=== PATIENT | male | born 1965 | race Caucasian/White ===

== ENCOUNTER 2017-02-19 10:33 | Emergency (ER) | payer OTHER, BC ==
[~2017-02-19] VITALS: Ht 177.8 cm; Wt 83.0 kg
[2017-02-19 11:27] LABS: BASOPHIL COUNT 0.1 K/uL (0-0.1); EOSINOPHIL (%) 0.7 % (0-5); EOSINOPHIL COUNT 0.1 K/uL (0-0.3); HEMATOCRIT 41.7 % (38.0-50.0); IMMATURE GRANULOCYTE (%) 1.9 % (0.0-0.7); IMMATURE GRANULOCYTE COUNT 0.3 K/uL; LYMPHOCYTE COUNT 1.8 K/uL (1.0-2.8); MCH 31.2 PG (29.0-34.0); MCHC 35.5 G/DL (30.0-36.0); MEAN PLAT.VOLUME 10.1 uM^3 (9.0-12.4); MONOCYTE (%) 4.8 % (3-12); MONOCYTE COUNT 0.7 K/uL (0-0.8); NEUTROPHIL (%) 80.1 % (45-76); PLATELET COUNT 302 K/uL (156-360); RBC DIS.WIDTH-CV 12.3 % (11.8-14.6); RBC DIS.WIDTH-SD 39.9 % (39-53); RED BLOOD COUNT 4.74 M/uL (4.00-5.50); WHITE BLOOD COUNT 14.9 K/uL (4.1-10.2)
[2017-02-19 11:37] LABS: CHLORIDE 108 mEq/L (99-109); POTASSIUM 4.3 mEq/L (3.7-5.4); SODIUM 138 mEq/L (136-147)
[2017-02-19 11:39] LABS: GLUCOSE 102 mg/dL (70-99)
[2017-02-19 11:40] LABS: ANION GAP 10 MEQ/L (2-14)
[2017-02-19 11:43] LABS: GFR ESTIMATE (CALCULATED) 52 mL/min/
[2017-02-19 11:44] LABS: UREA NITROGEN (BUN) 22 mg/dL (9-23)
[2017-02-19 12:00] LABS: ADD MIUA? NO; BILIRUBIN NEGATIVE; BLOOD NEGATIVE; COLOR YELLOW ((YELLOW)); GLUCOSE (STRIP) NEGATIVE; KETONES NEGATIVE; LEUKOCYTES NEGATIVE; NITRITE NEGATIVE; PROTEIN (STRIP) NEGATIVE; SPECIFIC GRAVITY 1.009 (1.000-1.030); UROBILINOGEN 0.2 MG/DL (0.2-1.0)
[2017-02-19] MEDS ORDERED: HYGROTON25 MG PO (14:14)
[2017-02-19] MEDS ORDERED: TOPROL XL50 MG PO (14:14)
[2017-02-19] MEDS ORDERED: XANAX0.5 MG PO (14:15)
[2017-02-19] MEDS ORDERED: ALDACTONE25 MG PO (14:15)
[2017-02-19] MEDS ORDERED: PROTONIX40 MG PO (14:15)
[2017-02-19] MEDS ORDERED: ROXICODONE5 MG PO (14:16)
[2017-02-19] MEDS ORDERED: ATIVAN2 MG PO (14:17)
[2017-02-19] MEDS ORDERED: OXYMORPHONE HCL15 MG PO (14:17)
[2017-02-19] MEDS ORDERED: LIPITOR20 MG PO (14:18)
[2017-02-19] MEDS ORDERED: LIDOCAINE HCL35 GM TP (14:18)
[2017-02-19] MEDS ORDERED: CIALIS10 MG PO (14:19)
[2017-02-19] MEDS ORDERED: FLEXERIL10 MG PO (14:19)
[2017-02-19] MEDS ORDERED: VITAMIN D31000 UNI2 PO (14:20)
[2017-02-19] MEDS ORDERED: VALIUM5 MG PO ×2 (14:22→14:27)
[2017-02-19] MEDS ORDERED: PERCOCET 5/31 TABLET PO (14:22)
[2017-02-19] MEDS ORDERED: PARAFON FORTE500 MG PO (14:22)
[2017-02-19] MEDS ORDERED: OXAYDO5 MG PO (14:26)
[2017-02-19 15:12] VITALS: BP 158/88
== END 2017-02-19 15:14 | disposition home or self-care (01) ==
LOC: TRA 10:33
PROVIDERS: Emergency Medicine
DX: S32.028A Other fracture of second lumbar vertebra, initial encounter for closed fracture (principal); V57.5XXA Driver of pick-up truck or van injured in collision with fixed or stationary object in traffic accident, initial encounter; Y92.410 Unspecified street and highway as the place of occurrence of the external cause; Z98.1 Arthrodesis status; K44.9 Diaphragmatic hernia without obstruction or gangrene; I10 Essential (primary) hypertension; E78.5 Hyperlipidemia, unspecified; F17.200 Nicotine dependence, unspecified, uncomplicated
CPT/HCPCS: 70450; 71260; 72125; 72129; 72132; 74177; 80048; 81003; 85025; 99281; 99285; J2270; J3010